=== PATIENT | male | born 1980 | race Caucasian/White ===

== ENCOUNTER 2020-04-22 17:31 | Emergency (ER) | payer MEDICAID, SELFPAY ==
--- NOTE | 2020-04-22 17:38 | PC.NURSE ---
Pt refuses a mask at intake. States I will have a panic attack and flop around on the floor like a nut job .
[2020-04-22 17:55] VITALS: BP 151/112; PULSE 118; RESP 18; TEMP 36.9; O2SAT 99
--- NOTE | 2020-04-22 18:46 | PC.NURSE ---
Pt out to desk, holding his abdomen. Pt states I'm leaving cause you didn't turn off that fucking beeping noise God damn it, I'm going to try to find a different hospital all I ask is that you turn off that fucking beeping noise. Just bill medicaid I'm going to find a better hospital . Charge nurse aware.
== END 2020-04-22 19:03 | disposition left against medical advice (07) ==
PROVIDERS: Emergency Provider Emergency Medicine; PCP Internal Medicine
DX: R10.9 Unspecified abdominal pain (principal)
CPT/HCPCS: 99199

== ENCOUNTER 2020-07-05 10:07 | Emergency (ER) | payer OTHER, SELFPAY ==
--- NOTE | 2020-07-05 10:18 | ED.MALEGU ---
HPI - Male Genitourinary General Chief complaint: Urogenital-Male Stated complaint: possible uti Time Seen by Provider: 07/05/20 10:18 Source: patient and RN notes reviewed History of Present Illness HPI Narrative: Patient is a 39-year-old male who presents the urgent care with complaints of possible urinary tract infection. Patient states that in the last year he has had several urinary tract infections and was supposed to follow-up with urologist in which he never did. Patient states he is also had intermittent lower abdominal pains and never completed the colonoscopy due to transportation issues. Patient currently denies abdominal pain, nausea, vomiting. States that he has have intermittent low back pain as well as burning in the penis . Patient denies any burning with urination, frequency, urgency. Patient is extremely anxious and explains that he has a high stress level . Patient also has a history of bipolar. No other acute complaints. Patient aware of the plan of care. Related Data Home Medications Medication Instructions Recorded Confirmed No Home Medications 07/05/20 07/05/20 Allergies Allergy/AdvReac Type Severity Reaction Status Date / Time Penicillins Allergy Intermediate Rash Unverified 07/05/20 10:09 ciprofloxacin [From Cipro] AdvReac Unknown Verified 07/05/20 10:38 Review of Systems Review of Systems: Narrative: CONSTITUTIONAL: Denies fever, chills, or sweats. EYES: Denies visual changes, redness, or discharge. ENT: Denies rhinorrhea, congestion, sore throat, or otalgia. CARDIOVASCULAR: Denies chest pain, palpitations, or edema. RESPIRATORY: Denies cough or dyspnea. GASTROINTESTINAL: Denies abdominal pain, nausea, vomiting, or diarrhea. GENITOURINARY: Denies dysuria or hematuria. : Reports of intermittent penile burning SKIN: Denies rash or itching. MUSCULOSKELETAL: Reports of low back pain NEUROLOGIC: Denies headache, numbness, or weakness. All other systems reviewed are negative, except as documented in HPI. PMFSH Social History Social History Gender identity (if verbalized by the patient): Male Comments At the time of my signature, I reviewed and agree with the nursing past medical, surgical, social, and family history. There is no relevant family history pertinent to the patient complaint. Exam Narrative: Exam Narrative: GENERAL: This is a well-nourished, well-developed patient, extremely anxious HEAD: normocephalic, atraumatic. EYES: PERRL. Sclera clear/white. Vision is grossly intact. EARS: External ears normal NOSE: External nose normal with no obvious nasal discharge, nares without redness, no rhinorrhea. THROAT: Mucous membranes moist NECK: Neck supple CARDIOVASCULAR: Regular rate and rhythm without murmurs, gallops, or rubs. RESPIRATORY: Clear to auscultation. Breath sounds equal bilaterally. No wheezes, rales, or rhonchi. GASTROINTESTINAL: Abdomen soft, non-tender, nondistended. Bowel sounds are active. SKIN: warm, intact with no suspicious lesions or rash, good texture and turgor. NEURO: awake, alert, and oriented to person, place and time. There were no obvious focal neurologic abnormalities. EXTREMITIES: No clubbing, cyanosis, or edema. BACK: negative CVA tenderness. Course Vital Signs Vital signs: Vital Signs Temperature 97.9 F 07/05/20 10:26 Pulse Rate 103 H 07/05/20 10:26 Respiratory Rate 16 07/05/20 10:26 Blood Pressure 140/82 07/05/20 10:26 Pulse Oximetry 99 07/05/20 10:26 Temperature 97.9 F 07/05/20 10:26 Pulse Rate 103 H 07/05/20 10:26 Respiratory Rate 16 07/05/20 10:26 Blood Pressure 140/82 07/05/20 10:26 Pulse Oximetry 99 07/05/20 10:26 reviewed MDM - Male Genitourinary MDM Narrative Medical decision making narrative: Reviewed lab results with the patient. He is aware that urine analysis was negative for urinary tract infection. Advised the patient that if his symptoms progress and his pain increases, or is associated
[2020-07-05 10:26] VITALS: BP 140/82; PULSE 103; RESP 16; TEMP 36.6; O2SAT 99
== END 2020-07-05 10:57 | disposition home or self-care (01) ==
PROVIDERS: Emergency Provider Nurse Practitioner Family
DX: Z20.2 Contact with and (suspected) exposure to infections with a predominantly sexual mode of transmission (principal)
CPT/HCPCS: 81003; 87491; 87591; 99213; G0463

== ENCOUNTER 2020-07-08 14:27 | Emergency (ER) | payer OTHER, SELFPAY ==
--- NOTE | ~2020-07-08 | CT_ITS ---
EXAMINATION: CT abdomen pelvis w con DATE: 07/08/2020 17:02 INDICATION: Left lower quadrant abdominal pain. Diffuse abdominal pain. TECHNIQUE: Computed tomography (CT) of the abdomen and pelvis was performed with 100 cc Omnipaque 350 intravenous contrast. Automated exposure control and iterative reconstruction technique were employe d. Exam dose: 282.76 mGy-cm total exam DLP. COMPARISON: None. FINDINGS: The lung bases are clear of infiltrate or consolidation. Normal heart size. No pericardial or pleural effusion. The gallbladder is contracted. No hepatic, splenic, pancreatic, and adrenal or renal space-occupying mass lesion is evident. Normal caliber of the abdominal aorta. No intraperitoneal or retroperitoneal or pelvic mass lesion or adenopathy or ascites. Normal appendix. There is diverticulosis of the colon; no CT evidence of diverticulitis. No bowel obstruction, bowel w all thickening, pneumatosis or intraperitoneal free air is detected. Small fat-containing umbilical hernia. There is moderately prominent degenerative disc disease at L4-5 and L5-S1 with vacuum phenomenon at e ach of these levels. No suspicious osteolytic or osteoblastic lesions. IMPRESSION: Diverticulosis of the colon; no CT evidence of diverticulitis Normal appendix Reviewed, dictated and finalized at [facility] Reviewed, dictated and finalized at [facility].
[2020-07-08 14:38] VITALS: BP 120/100; PULSE 112; RESP 14; TEMP 37.2; O2SAT 100
--- NOTE | 2020-07-08 15:14 | ED.ABDPAIN ---
HPI - Abdominal Pain General Chief Complaint: Abdominal Pain Stated Complaint: kidney pain Time Seen by Provider: 07/08/20 15:08 Source: patient History of Present Illness HPI narrative: 39 years old white male complaining of diffuse abdominal pain like burning sensation, intermittent started 1 week ago, worse laying down and sitting, better standing. Patient works as a contractor Related Data Allergies Allergy/AdvReac Type Severity Reaction Status Date / Time Penicillins Allergy Intermediate Rash Verified 07/08/20 14:37 ciprofloxacin [From Cipro] AdvReac Unknown Verified 07/08/20 14:37 Review of Systems Review of Systems: Narrative: CONSTITUTIONAL: Denies fever, chills, or sweats. EYES: Denies visual changes, redness, or discharge. ENT: Denies rhinorrhea, congestion, sore throat, or otalgia. CARDIOVASCULAR: Denies chest pain, palpitations, or edema. RESPIRATORY: Denies cough or dyspnea. GASTROINTESTINAL: Denies abdominal pain, nausea, vomiting, or diarrhea. GENITOURINARY: Denies dysuria or hematuria. SKIN: Denies rash or itching. MUSCULOSKELETAL: Denies back pain, joint pain, or myalgia. NEUROLOGIC: Denies headache, numbness, or weakness. PSYCHIATRIC: Denies anxiety or depression. [facility] Social History Social History (Updated 07/08/20 @ 15:16 by Gloria Dickerson MD) Smoking status: Current some day smoker Tobacco type: cigarettes Substance use type: marijuana Living arrangements: alone Gender identity (if verbalized by the patient): Male Exam Narrative: Exam Narrative: General appearance: Well-developed, well-nourished Skin: Normal color Head: Normocephalic, nontraumatic Eyes: Clear conjunctiva ENT: Oropharynx normal, ears normal, nose normal Neck: Supple, nontender Chest and respiratory: Airway patent, no respiratory distress, no accessory muscle use Heart: Regular rate/rhythm Abdomen: Soft, nontender, no organomegaly, quiet bowel sounds Vascular: Normal peripheral pulses, normal capillary refill. Musculoskeletal: Normal range of motion, nontender back Neurologic: Alert and oriented ?3, [employer] is normal as tested, no gross motor deficit Course Course Emergency Course: Stable Vital Signs Vital signs: Vital Signs Temperature 37.2 C 07/08/20 14:38 Pulse Rate 112 H 07/08/20 14:38 Respiratory Rate 14 07/08/20 14:38 Blood Pressure 120/100 H 07/08/20 14:38 Pulse Oximetry 100 07/08/20 14:38 Temperature 37.2 C 07/08/20 14:38 Pulse Rate 90 07/08/20 16:34 Respiratory Rate 16 07/08/20 16:34 Blood Pressure 130/86 07/08/20 16:34 Pulse Oximetry 98 07/08/20 16:34 MDM - Abdominal Pain MDM Narrative Medical decision making narrative: Patient presents with abdominal pain, Labs, CT abdomen and pelvis with IV contrast, IV fluid, UA ordered. Further plan to follow Blood work-up fairly normal, CAT scan of the abdomen and pelvis within normal limits. Stress, anxiety or work related muscular strain/strain is a possibility. Patient will be discharged on Bentyl and to take ibuprofen as needed for pain. Differential Diagnosis Differential diagnosis: Likely abdominal pain, acute appendicitis, constipation, diverticulitis and pancreatitis Lab Data Result diagrams: 07/08/20 15:00 07/08/20 15:00 Labs: Lab Results 07/08/20 07/08/20 07/08/20 Range/Units 15:00 15:00 15:01 WBC 9.8 (4.5-10.0) K/mm3 RBC 5.23 (4.6-6.20) M/mm3 Hgb 15.7 (14.0-18.0) g/dL Hct 46.0 (42.0-52.0) % MCV 88.0 (80-100) fl MCH 30.0 (26-34) pg MCHC 34.1 (32-36) g/dl RDW 11.9 (11.5-14.5) % Plt Count 254 (150-375) k/mm3 MPV 9.7 (7.4-10.4) fl Immature Gran % (Auto)
[2020-07-08 15:28] LABS: Basophils Absolute Auto 0.1 K/mm3 (0.0-0.1); Basophils Percent Auto 0.5 % (0.2-1.2); Eosinophils Absolute Auto 0.2 K/mm3 (0-0.3); Eosinophils Percent Auto 2.1 % (0-4.4); Hemoglobin 15.7 g/dL (14.0-18.0); Immature Granulocyte Absolute 0.02 K/mm3 (0.00-0.031); Immature Granulocyte Percent A 0.2 % (0-0.5); Lymphocytes Absolute Auto 2.31 K/mm3 (0.9-3.2); Lymphocytes Percent Auto 23.5 % (18.3-44.2); Mean Corpuscular HGB Conc 34.1 g/dl (32-36); Mean Platelet Volume 9.7 fl (7.4-10.4); Monocytes Absolute Auto 0.7 K/mm3 (0.1-0.6); Monocytes Percent Auto 6.6 % (2.6-8.5); Neutrophils Absolute Auto 6.6 K/mm3 (1.3-6.7); Neutrophils Percent Auto 67.1 % (45.5-73.1); Platelet Count Result 254 k/mm3 (150-375); Red Blood Count 5.23 M/mm3 (4.6-6.20); Red Cell Distribution Width 11.9 % (11.5-14.5); White Blood Count 9.8 K/mm3 (4.5-10.0)
[2020-07-08 15:30] LABS: Add Urine Microscopic? NO; Appearance Urine Clear (Clear); Bilirubin Urine Negative (Negative); Blood Urine Negative (Negative); Color Urine Yellow (Yellow); Glucose Urine UA Negative (Negative); Ketones Urine Negative (Negative); Leukocyte Esterase Ur Negative LEU/UL (Negative); Nitrate Urine Negative (Negative); Protein Urine Negative (Negative); Specific Grav Ur 1.026 (1.001-1.035); Urobilinogen Urine Negative mg/dL (<2.0)
[2020-07-08 15:40] LABS: Alanine Aminotransferase 28 U/L (4-50); Albumin Level 4.5 g/dL (3.5-5.1); Alkaline Phosphatase 61 U/L (38-126); Anion Gap 7 mmol/L (8-16); Aspartate Amino Transferase 24 U/L (17-59); Bilirubin,Total 0.5 mg/dL (0.2-1.3); Blood Urea Nitrogen 17 mg/dL (9-20); Carbon Dioxide 28 mmol/L (22-30); Chloride 102 mmol/L (98-107); Estimated CRCL calculation 78 ml/min; Estimated Glomerular Filt Rate > 60; Glucose 119 mg/dL (75-110); Lipase 78 U/L (23-300); Potassium 3.9 mmol/L (3.4-5.0); Sodium 137 mmol/L (137-145)
[2020-07-08 16:34] VITALS: BP 130/86; PULSE 90; RESP 16; O2SAT 98
[2020-07-08] MEDS: ACETAMINOPHEN 500 MG TABLET 1000 MG PO (17:38)
--- NOTE | 2020-07-08 17:52 | PC.NURSE ---
failed iv start and lab draw. second rn to try
[2020-07-08 18:20] VITALS: BP 154/72; PULSE 70; RESP 16; O2SAT 99
== END 2020-07-08 18:26 | disposition home or self-care (01) ==
PROVIDERS: Emergency Provider Emergency Medicine
DX: R10.9 Unspecified abdominal pain (principal); F17.210 Nicotine dependence, cigarettes, uncomplicated
CPT/HCPCS: 36415; 74177; 80053; 81003; 83690; 85025; 99284; A9270; Q9967

== ENCOUNTER 2020-12-07 03:45 | Emergency (ER) | payer OTHER, SELFPAY ==
[2020-12-07 03:48] VITALS: BP 138/106; PULSE 118; RESP 16; TEMP 36.4; O2SAT 98
--- NOTE | 2020-12-07 03:52 | ED.DENTAL ---
HPI - Dental/Oral General Chief complaint: Dental/Oral Stated complaint: gum pain for 2 years Time Seen by Provider: 12/07/20 03:52 History of Present Illness HPI Narrative: 39 yo male presents to the ED for pain in his mouth. He says that he has had had severe burning pain in his gums for several months. He says that it started while he was in retirement and thye would not let him see anyone about it. Although he has been out for the past 4 months and has still not seen a dentist. He has been to the ED at other hospitals multiple times, but says [facility] told him nothing was wrong. He reports that he did have several other issues, but that is not why he is here right now. Related Data Allergies Allergy/AdvReac Type Severity Reaction Status Date / Time Penicillins Allergy Intermediate Rash Verified 07/08/20 14:37 ciprofloxacin [From Cipro] AdvReac Unknown Verified 07/08/20 14:37 Review of Systems Review of Systems: All systems reviewed & are unremarkable except as noted in HPI and below Constitutional: Constitutional: Reports fatigue and Denies fever(s) Comments: weight loss, insomnia ENT: Reports dysphagia and Reports sore throat Cardiovascular: Cardiovascular: Denies chest pain Respiratory: Respiratory: Reports cough Gastrointestinal: Gastrointestinal: Reports abdominal pain Genitourinary: Genitourinary: Reports dysuria Neurologic: Reports weakness PMFSH Past Medical History Medical History (Updated 12/07/20 @ 04:44 by Hardik Lorenzo MD) Urethritis Social History Social History (Updated 07/08/20 @ 15:16 by Gloria Dickerson MD) Smoking status: Current some day smoker Tobacco type: cigarettes Substance use type: marijuana Gender identity (if verbalized by the patient): Male Exam Const: General: no acute distress, alert and ill appearing chronically Orientation/consciousness: patient oriented x3 HENMT: Teeth and gingiva: abnormal tooth and associated gingiva (diffuse gum disease with erythema ) Eyes: Pupils: Equal, round and reactive pupils present Neck: Neck: lymphadenopathy Resp: Effort & Inspection: normal respiratory effort Auscultation: clear to auscultation bilaterally Cardio: Rate: regular rate Rhythm: regular rhythm Skin: General skin exam: normal color Neuro: General: patient oriented x3, moves all extremities, no focal motor deficits and CN's II-XI intact bilaterally Speech: normal speech Extrem: General: normal to inspection Psych: Affect: Anxious affect present Course Vital Signs Vital signs: Vital Signs Temperature 36.4 C 12/07/20 03:48 Pulse Rate 118 H 12/07/20 03:48 Respiratory Rate 16 12/07/20 03:48 Blood Pressure 138/106 H 12/07/20 03:48 Pulse Oximetry 98 12/07/20 03:48 Temperature 36.4 C 12/07/20 03:48 Pulse Rate 118 H 12/07/20 03:48 Respiratory Rate 16 12/07/20 03:48 Blood Pressure 138/106 H 12/07/20 03:48 Pulse Oximetry 98 12/07/20 03:48 MDM - Dental/Oral MDM Narrative Medical decision making narrative: He has severe gingivitis I will initiate treatment Differential Diagnosis Differential diagnosis: Likely gingival abscess, dental caries and dental abscess Discharge Plan Discharge Clinical Impression: Gingivitis Patient Disposition: Home, Self-Care Condition: Stable Instructions: Antibiotic Form, Gingivitis (ED) Prescriptions: New clindamycin HCl 150 mg capsule 450 mg PO Q8H 10 Days Qty: 90 RF: 0 chlorhexidine gluconate 0.12 % mouthwash 15 ml buccal BID Qty: 600 RF: 0 No Action dicyclomine 20 mg tablet 20 mg PO QID Qty: 20 RF: 0 Follow-up/Referrals: PHYSICIAN,ANIMAL TECHNICIAN [Primary Care Provider] - Stand Alone Forms: Work/School Release IP
[2020-12-07] MEDS: CLINDAMYCIN HCL 150 MG CAP 450 MG PO (04:35)
[2020-12-07] MEDS: KETOROLAC (*BKC) 60 MG/2 ML VIAL IM (04:35)
[2020-12-07] MEDS: CHLORHEXIDINE GLUCONATE 0.12% ORAL RINSE 473 ML BTL (*BKC) 15 ML SWISH/SPIT (04:40)
--- NOTE | 2020-12-07 04:40 | PC.NURSE ---
Pt given meds po and IM. Discussed importance of cleaning teeth and brushing with a soft tooth brush.
== END 2020-12-07 04:50 | disposition home or self-care (01) ==
PROVIDERS: Emergency Provider Emergency Medicine
DX: K05.10 Chronic gingivitis, plaque induced (principal); F17.210 Nicotine dependence, cigarettes, uncomplicated
CPT/HCPCS: 96372; 99283; A4248; A9270; J1885

== ENCOUNTER 2020-12-23 08:01 | Emergency (ER) | payer OTHER, SELFPAY ==
[2020-12-23 08:15] VITALS: BP 143/86; PULSE 116; RESP 18; TEMP 36.6; O2SAT 100
--- NOTE | 2020-12-23 08:44 | ED.GENADULT ---
HPI - General Adult General Chief complaint: Unspecified Stated complaint: Medication Refill Time Seen by Provider: 12/23/20 08:06 Source: patient Mode of arrival: ambulatory Limitations: no limitations History of Present Illness HPI narrative: PAtient is a 39 year old male with history of bipolar and PTSD who presents for a medication refill. He states he was in [facility] for [facility]. He is out of his Lamictal and he is about to run out of his Buspar. He states he was told by his it systems analyst to come to hospital to get refill prescriptions. On review patient has been out of [facility] for 4 months and he states he has not seen a psychiatrist or PCP. He reports he has an appointment next month. Related Data Allergies Allergy/AdvReac Type Severity Reaction Status Date / Time Penicillins Allergy Intermediate Rash Verified 12/23/20 08:18 ciprofloxacin [From Cipro] AdvReac Unknown Verified 12/23/20 08:18 morphine AdvReac Nausea and Verified 12/23/20 08:18 Vomiting Review of Systems Review of Systems: All systems reviewed & are unremarkable except as noted in HPI and below PMFSH Past Medical History Medical History (Updated 12/23/20 @ 08:50 by Paty Andrade MD) Bipolar disorder PTSD (post-traumatic stress disorder) Urethritis Social History Social History (Updated 07/08/20 @ 15:16 by Gloria Dickerson MD) Smoking status: Current some day smoker Tobacco type: cigarettes Substance use type: marijuana Gender identity (if verbalized by the patient): Male Exam Narrative: Exam Narrative: GENERAL: Well-appearing, well-nourished, and in no acute distress. HEAD: Normocephalic, atraumatic EYES: PERRLA and EOMI, conjunctiva clear without discharge THROAT:Mucous membranes moist, Oropharynx normal without erythema, exudate, peritonsillar swelling or fluctuance NECK: Supple, without lymphadenopathy or mass RESPIRATORY: No respiratory distress, Airway patent, Respirations non-labored, Clear to auscultation without rales, rhonchi or wheeze HEART: Regular rate and rhythm. No murmur heard. Normal peripheral pulses. EXTREMITIES: No edema, normal strength with full range of motion. SKIN: Warm, dry, normal color without rash NEURO: Alert and oriented x3. CN 2-12 grossly intact. No focal deficits. PSYCH: Normal mood and affect. Course Reevaluation(s) Reevaluation #1: I discussed with patient that I will give him prescription for a few days but I do not feel comfortable giving him a months worth of medication as I am not his primary physician. Date: 12/23/20 Time: 08:49 Vital Signs Vital signs: Vital Signs Temperature 97.8 F 12/23/20 08:15 Pulse Rate 116 H 12/23/20 08:15 Respiratory Rate 18 12/23/20 08:15 Blood Pressure 143/86 H 12/23/20 08:15 Pulse Oximetry 100 12/23/20 08:15 Temperature 97.8 F 12/23/20 08:15 Pulse Rate 116 H 12/23/20 08:15 Respiratory Rate 18 12/23/20 08:15 Blood Pressure 143/86 H 12/23/20 08:15 Pulse Oximetry 100 12/23/20 08:15 Medical Decision Making Vital Signs Vital Signs: Vital Signs Temperature 97.8 F 12/23/20 08:15 Pulse Rate 116 H 12/23/20 08:15 Respiratory Rate 18 12/23/20 08:15 Blood Pressure 143/86 H 12/23/20 08:15 Pulse Oximetry 100 12/23/20 08:15 Temperature 97.8 F 12/23/20 08:15 Pulse Rate 116 H 12/23/20 08:15 Respiratory Rate 18 12/23/20 08:15 Blood Pressure 143/86 H 12/23/20 08:15 Pulse Oximetry 100 12/23/20 08:15 Discharge Plan Discharge Clinical Impression: Bipolar disorder Patient Disposition: Home, Self-Care Condition: Stable Instructions: Antibiotic Form, Bipolar Disorder (ED) Additional Instructions: Please follow up with your psychiatrist and get established with a primary care physician. You can try [employer] as well Prescriptions: Changed lamotrigine 25 mg tablet 50 mg PO BID Qty: 16 RF: 0 buspirone 15 mg tablet 15 mg PO BID Qty: 8 RF: 0
== END 2020-12-23 09:07 | disposition home or self-care (01) ==
PROVIDERS: Emergency Provider General Practice
DX: F31.9 Bipolar disorder, unspecified (principal); F43.12 Post-traumatic stress disorder, chronic; F17.210 Nicotine dependence, cigarettes, uncomplicated
CPT/HCPCS: 99281